=== PATIENT | male | born 1980 | race Caucasian/White ===

== ENCOUNTER → 2017-02-28 | Outpatient (REF) | LOC: WSOH 10:26 | DX: Z02.1 Encounter for pre-employment examination (principal) ==

== ENCOUNTER → 2017-02-28 | Outpatient (REF) | LOC: WSOH 10:28 | DX: Z00.00 Encounter for general adult medical examination without abnormal findings (principal) ==

== ENCOUNTER → 2017-03-03 | Outpatient (REF) | LOC: WSOH 09:26 | DX: Z00.00 Encounter for general adult medical examination without abnormal findings (principal) ==

== ENCOUNTER → 2017-03-09 | Outpatient (REF) | LOC: WSOH 03-07 15:00 | DX: Z00.00 Encounter for general adult medical examination without abnormal findings (principal) ==

== ENCOUNTER → 2017-03-09 | Outpatient (REF) | LOC: WSOH 09:45 | DX: Z02.89 Encounter for other administrative examinations (principal) ==

== ENCOUNTER 2021-04-21 10:06 | Emergency (ER) | payer OTHER ==
[~2021-04-21] VITALS: Ht 190.5 cm; Wt 118.2 kg
[2021-04-21 10:42] VITALS: TEMP 97.8
[2021-04-21 11:19] LABS: BASO % 0.4 % (0.0-2.0); EOS # 0.1 (0.0-0.7); EOS % 0.9 % (0-4.0); GRAN # 6.4 (1.4-6.5); GRAN % 75.3 % (42.2-75.2); HEMATOCRIT 39.6 % (42.0-52.0); HEMOGLOBIN 13.9 g/dl (13.5-18.0); LYMPH # 1.3 (1.2-3.4); LYMPH % 15.7 % (20.0-51.0); MEAN CELL VOLUME 89 fl (80.0-100.0); MEAN CORPUSCULAR HEMOGLOBIN 31 pg (27.0-31.0); MEAN CORPUSCULAR HGB CONC 35 g/dl (33.0-37.0); MEAN PLATELET VOLUME 8.7 fl (7.4-10.4); MONO # 0.6 (0.1-0.6); MONO % 6.5 % (1.7-9.3); PLATELET COUNT 234 K/mm3 (130-400); RED BLOOD COUNT 4.43 M/mm3 (4.20-5.60); REDCELL DISTRIBUTION WIDTH-CV 14.4 % (11.5-14.5)
[2021-04-21 11:33] LABS: ALBUMIN 4.3 gm/dL (3.5-5.0); BILIRUBIN,TOTAL 0.6 mg/dL (0.0-1.0); C-REACTIVE PROTEIN 1.9 mg/dL (0.0-0.9); CALCIUM 9.5 mg/dL (8.4-10.2); CREATININE, serum 1.37 (0.66-1.25); POTASSIUM 3.6 mmol/L (3.4-5.0); TOTAL PROTEIN 7.8 gm/dL (6.4-8.2)
[2021-04-21 11:42] LABS: TROPONIN-I 0.03 ng/mL (0.000-0.035)
[2021-04-21] MEDS ORDERED: HCTZ 25MG TAB25 MG PO (15:22)
[2021-04-21 15:30] VITALS: BP 167/101; PULSE 76
== END 2021-04-21 15:30 | disposition home or self-care (01) ==
LOC: COL.ER 10:06
PROVIDERS: Nurse Practitioner Primary Care
DX: R22.43 Localized swelling, mass and lump, lower limb, bilateral (principal); I10 Essential (primary) hypertension; R79.89 Other specified abnormal findings of blood chemistry

== ENCOUNTER 2021-05-05 13:48 | Emergency (ER) | payer OTHER ==
[~2021-05-05] VITALS: Ht 190.5 cm; Wt 125.0 kg
[~2021-05-05 13:48] MED LIST: HCTZ 25MG TAB25 MG PO
[2021-05-05 14:14] VITALS: TEMP 98.7
[2021-05-05 18:19] LABS: BASO % 0.3 % (0.0-2.0); EOS # 0.1 (0.0-0.7); EOS % 0.6 % (0-4.0); GRAN # 8.6 (1.4-6.5); GRAN % 79.5 % (42.2-75.2); HEMOGLOBIN 13.2 g/dl (13.5-18.0); LYMPH % 8.8 % (20.0-51.0); MEAN CELL VOLUME 91 fl (80.0-100.0); MEAN CORPUSCULAR HEMOGLOBIN 32 pg (27.0-31.0); MEAN CORPUSCULAR HGB CONC 35 g/dl (33.0-37.0); MEAN PLATELET VOLUME 8.7 fl (7.4-10.4); MONO # 1.1 (0.1-0.6); MONO % 10.2 % (1.7-9.3); PLATELET COUNT 269 K/mm3 (130-400); RED BLOOD COUNT 4.18 M/mm3 (4.20-5.60); REDCELL DISTRIBUTION WIDTH-CV 13.9 % (11.5-14.5)
[2021-05-05 18:28] LABS: ALBUMIN 4.3 gm/dL (3.5-5.0); BILIRUBIN,TOTAL 0.8 mg/dL (0.0-1.0); CALCIUM 9.4 mg/dL (8.4-10.2); CREATININE, serum 1.44 (0.66-1.25); POTASSIUM 3.8 mmol/L (3.4-5.0); TOTAL PROTEIN 8.2 gm/dL (6.4-8.2)
[2021-05-05 18:43] LABS: C-REACTIVE PROTEIN 13.7 mg/dL (0.0-0.9)
[2021-05-05 18:52] LABS: COLLECTION METHOD CLEAN CATCH
[2021-05-05 19:00] LABS: MUCOUS Present /lpf; PH 6 (5-8); SQUAMOUS EPITHELIAL None Seen /hpf; URINE APPEARANCE Clear; URINE BACTERIA None Seen /hpf; URINE BILIRUBIN Negative (NEGATIVE); URINE BLOOD 1+ (NEGATIVE); URINE COLOR Yellow; URINE GLUCOSE Negative (NEGATIVE); URINE KETONE 1+ (NEGATIVE); URINE LEUKOCYTE ESTERASE Negative (NEGATIVE); URINE NITRATE Negative (NEGATIVE); URINE PROTEIN(semi-quant) 2+ (NEGATIVE)
[2021-05-05] MEDS ORDERED: PERCOCET 325 MG1 TA2 PO (20:02)
[2021-05-05 20:33] VITALS: BP 145/101; PULSE 89
== END 2021-05-05 20:35 | disposition home or self-care (01) ==
LOC: COL.ER 13:48
PROVIDERS: Nurse Practitioner Primary Care
DX: R59.0 Localized enlarged lymph nodes (principal); N49.2 Inflammatory disorders of scrotum; I10 Essential (primary) hypertension; F17.200 Nicotine dependence, unspecified, uncomplicated
CPT/HCPCS: J1170

== ENCOUNTER 2021-05-15 12:52 | Day surgery (SDC) | payer OTHER ==
[2021-05-15] VITALS (15 sets, daily range): BP systolic 119–137; BP diastolic 74–90; PULSE 78–100; TEMP 97.8–98.4
[~2021-05-15] VITALS: Ht 190.5 cm; Wt 117.2 kg
[~2021-05-15 12:52] MED LIST changes: +PERCOCET 325 MG1 TA2 PO
[2021-05-15] MEDS ORDERED: ADALAT CC30 MG PO (14:10)
[2021-05-15] MEDS ORDERED: TOPROL XL 50MG50 MG PO (14:11)
[2021-05-15] MEDS ORDERED: ALDACTONE 25MG25 M1 PO (14:11)
[2021-05-15] MEDS ORDERED: ZESTRIL 20MG TA20 MG PO (14:12)
[2021-05-15] MEDS ORDERED: DAZIDOX20 MG PO (14:12)
--- NOTE | 2021-05-15 18:15 | NUR ---
Pt. arrived to unit after surgery. Pt. alert and requested to go to the bathroom. Pt. voided and while he was voiding he reported what looked like blood clots came out while he was urinating. He was screaming because it was painful. This RN offered the patient reassurance and helped the patient back to bed. The pt. reported it was very painful at the end of the urination when the clots came out. Pt. resting in bed now and reports 9/10 pain. Oxycodone PRN administered.
--- NOTE | 2021-05-15 18:25 | NUR ---
Head to toe assessment complete. Medications reviewed with pt. and all meds accurate. Pharmacy and allergies reviewed, no known allergies and [facility] pharmacy up to date.
[2021-05-15 21:43] LABS: LACTATE DEHYDROGENASE 2073 U/L (313-618)
[2021-05-15 22:10] LABS: HCG,QUANTITATIVE < 2 mIU/mL
--- NOTE | 2021-05-16 03:10 | NUR ---
PATIENT A+OX4, VSS. PATIENT REQUESTED TO SPEAK TO SURGENT TO HAVE MORE CLARIFICATION REGARDING PLAN SURGICAL PROCEDURE FOR TODAY. DR REYNA MIDDLETON CALLED AND WAS ABLE TO TALKED TO PATIENT AND EXPLAINED THE PLAN PROCEDURE TO PATIENT. HE VERBALIZE UNDERSTANDING. PATIENT INDEPENDENTT, VOID BLOODY COLOR URINE, PATIENT REPORT PAIN WITH URINATION. PAIN MANAGE WITH OXYCODONE 5 MG Q 4HRS WITH GOOD EFFECT. WILL CONTINUE TO MONITOR.
[2021-05-16 04:09] VITALS: BP 129/78; PULSE 65; TEMP 98
[2021-05-16 04:11] VITALS: BP 129/78; PULSE 65; TEMP 98
[2021-05-16 08:00] VITALS: BP 130/78; PULSE 63; TEMP 97.6
--- NOTE | 2021-05-16 09:30 | NUR ---
Patient resting in bed. He has lots of concerns about neph tube placement. Spoke with . I also called and spoke to radiologist, he is unaware of neph tube placement orders. made aware. Patient main complaints of pain are with urination. Azo & levsin ordered
[2021-05-16] MEDS ORDERED: LOVENOX 4040 MG/0.4 SQ (11:26)
[2021-05-16] MEDS ORDERED: NORCO 325 MG-51 TAB PO (11:26)
[2021-05-16] MEDS ORDERED: PYRIDIUM 100MG100 MG PO (11:26)
--- NOTE | 2021-05-16 13:03 | NUR ---
rounded. Discharge orders obtained. Patient aware of plan of care. Patient was able to give himself lovenox injection per orders. [facility], vijaya reviewed patient agreeable to pay for script. We discussed home med list & last dose taken, he is understanding. Incisions cares reviewed as well as signs & symptoms to call physican. activity restrictions & diet reviewed. Patient has follow up appt scheduled for to [place]. Patient is wanting a second opinion. He will not be getting neph tube placed today, it will be done on outpatient basis per patient preference. Patient wheeled out with all belongings. His son taking him home. new jock strap provided for patient as well as gauze for home dressing change to be completed after a shower this evening. 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 thankful for cares given.
--- NOTE | 2021-05-16 13:16 | NUR ---
Horticulture Instructor offered prayer and support with patient.
== END 2021-05-16 13:19 | disposition home or self-care (01) ==
LOC: SDCO 12:52 → SURG 17:55 → SDCO 05-16 13:19
PROVIDERS: Urology
DX: C62.11 Malignant neoplasm of descended right testis (principal); I10 Essential (primary) hypertension; N13.30 Unspecified hydronephrosis; L03.112 Cellulitis of left axilla; F17.210 Nicotine dependence, cigarettes, uncomplicated; Z20.822 Contact with and (suspected) exposure to COVID-19; Z79.2 Long term (current) use of antibiotics; Z79.899 Other long term (current) drug therapy
CPT/HCPCS: OP; C1769; J0690; J1100; J1170; J1650; J2405; J2704; J3010; J7120; Q9967

== ENCOUNTER → 2022-07-06 | Outpatient (CLI) | payer OTHER ==
[~2022-07-06] MED LIST changes: +ADALAT CC30 MG PO; +ALDACTONE 25MG25 M1 PO; +DAZIDOX20 MG PO; +LOVENOX 4040 MG/0.4 SQ; +NORCO 325 MG-51 TAB PO; +PYRIDIUM 100MG100 MG PO; +TOPROL XL 50MG50 MG PO; +ZESTRIL 20MG TA20 MG PO
== END ==
LOC: COL.RAD 08:05
DX: C62.91 Malignant neoplasm of right testis, unspecified whether descended or undescended (principal); R91.1 Solitary pulmonary nodule; N13.30 Unspecified hydronephrosis; K57.30 Diverticulosis of large intestine without perforation or abscess without bleeding; R59.0 Localized enlarged lymph nodes
CPT/HCPCS: Q9967

== ENCOUNTER 2023-11-25 07:03 | Emergency (ER) | payer OTHER ==
[~2023-11-25] VITALS: Ht 188 cm; Wt 127.3 kg
[2023-11-25] MEDS ORDERED: Rocuronium 50 MG/5 ML Multi-Dose VIAL IV SCH (07:15)
[2023-11-25] MEDS ORDERED: Etomidate 20 MG/10 ML VIAL IV SCH (07:15)
[2023-11-25] MEDS ORDERED: Furosemide 40 MG/4 ML VIAL IV SCH (07:24)
[2023-11-25 07:45] LABS: ALBUMIN 3.4 gm/dL (3.5-5.0); BILIRUBIN,TOTAL 0.9 mg/dL (0.2-1.2); CALCIUM 9.6 mg/dL (8.4-10.2); CREATININE, serum 1.7 mg/dL (0.72-1.25); POTASSIUM 3.8 mmol/L (3.5-4.5); TOTAL PROTEIN 8.3 gm/dL (6.2-8.1)
[2023-11-25 07:46] LABS: HEMOGLOBIN 12.2 g/dl (13.5-18.0); MEAN CELL VOLUME 93 fl (80.0-100.0); MEAN CORPUSCULAR HEMOGLOBIN 26 pg (27-31); MEAN CORPUSCULAR HGB CONC 28 g/dl (33.0-37.0); MEAN PLATELET VOLUME 9.3 fl (7.4-10.4); PLATELET COUNT 226 K/mm3 (130-400); RED BLOOD COUNT 4.63 M/mm3 (4.20-5.60)
[2023-11-25 07:59] LABS: MAGNESIUM 2.3 mg/dL (1.6-2.6); PHOSPHOROUS 4.1 mg/dL (2.3-4.7)
[2023-11-25 08:08] LABS: TROPONIN-I 0.037 ng/mL (0.00-0.033)
[2023-11-25 08:28] LABS: BAND 2 % (0-10); BASOPHIL 2 % (0-2); EOSINOPHIL 1 % (0-4); LYMPHOCYTE 23 % (20.0-51.0); NEUTROPHILS 66 % (42.0-75.2); PLATELET ESTIMATE NORMAL (NORMAL)
[2023-11-25 08:30] LABS: ANISOCYTOSIS 1+
[2023-11-25 08:31] LABS: HYPOCHROMIA 2+
[2023-11-25] MEDS ORDERED: Rocuronium 50 MG/5 ML Multi-Dose VIAL IV ONE (09:15)
[2023-11-25] MEDS ORDERED: Cefepime 1 G in Water For Injection,Sterile 10 ML IV ONE (09:15)
[2023-11-25 10:41] VITALS: BP 97/65; PULSE 113; TEMP 98.9
--- NOTE | 2023-11-25 10:57 | NUR ---
Patient is intubated in the ED. rail signal worker contacted [facility] [employer] and was able to secure a phone number for patient's daughter, Christianne Ang #[phone]. House Superviser, Francisco, made contact with Christianne regarding patient's health condition and transfer.
[2023-11-25] MEDS ORDERED: Nitroglycerin/D5W 250 ML IV ONE (11:00)
[2023-11-25] MEDS ORDERED: fentaNYL 100 ML IV ONE (11:00)
== END 2023-11-25 10:41 | disposition short-term general hospital (02) ==
LOC: COL.ER 07:03
PROVIDERS: Emergency Medicine
DX: J81.0 Acute pulmonary edema (principal); I50.9 Heart failure, unspecified; E87.20 Acidosis, unspecified; R00.0 Tachycardia, unspecified; D72.829 Elevated white blood cell count, unspecified
CPT/HCPCS: A4314; C1751; C1892; J0692; J1940; J2305; J2704; J3010; J3370; J7050

== ENCOUNTER 2024-03-29 17:02 | Inpatient (IN) | payer OTHER ==
[~2024-03-29] VITALS: Ht 190.5 cm; Wt 129.1 kg
[2024-03-29] MEDS ORDERED: Furosemide 40 MG/4 ML VIAL IV ONE (17:30)
[2024-03-29 17:46] LABS: ARTERIAL BLD GAS O2 SATURATION 92.7 % (92-100); ARTERIAL BLD GAS TCO2 CT 16.7; ARTERIAL BLOOD GAS BASE EXCESS -6.5 (-2-2); ARTERIAL BLOOD GAS HCO3 15.9 meq/L (22-26); ARTERIAL BLOOD GAS PCO2 24.2 mmHg (35-45); ARTERIAL BLOOD GAS PO2 74.3 mmHg (80-100); ARTERIAL BLOOD GAS pH 7.44 (7.35-7.45)
[2024-03-29] MEDS ORDERED: Furosemide 100 MG in NS 100 ML IV SCH (18:00)
[2024-03-29 18:02] LABS: HEMATOCRIT 42.1 % (42.0-52.0); MEAN CELL VOLUME 79 fl (80.0-100.0); MEAN CORPUSCULAR HEMOGLOBIN 24 pg (27-31); MEAN CORPUSCULAR HGB CONC 31 g/dl (33.0-37.0); MEAN PLATELET VOLUME 9.5 fl (7.4-10.4); PLATELET COUNT 405 K/mm3 (130-400); RED BLOOD COUNT 5.33 M/mm3 (4.20-5.60); REDCELL DISTRIBUTION WIDTH-CV 21.2 % (11.5-14.5)
[2024-03-29 18:40] LABS: EOSINOPHIL 1 % (0-4); LYMPHOCYTE 22 % (20.0-51.0); NEUTROPHILS 67 % (42.0-75.2)
[2024-03-29 18:42] LABS: ANISOCYTOSIS 2+; HYPOCHROMIA 3+; MICROCYTOSIS 1+; PLATELET ESTIMATE INCREASED (NORMAL); STOMATOCYTE 1+
[2024-03-29] MEDS ORDERED: KLOR-CON20 MEQ PO (19:51)
[2024-03-29] MEDS ORDERED: PACERONE200 MG PO (19:52)
[2024-03-29] MEDS ORDERED: ZEBETA 5MG5 MG PO (19:54)
[2024-03-29] MEDS ORDERED: LASIX 40MG TABL40 MG PO (19:54)
[2024-03-29] MEDS ORDERED: ASPIRIN 81M81 MG/TA2 PO (19:55)
[2024-03-29] MEDS ORDERED: LIPITOR 40MG TA40 MG PO (19:56)
[2024-03-29] MEDS ORDERED: JARDIANCE10 PO (19:57)
[2024-03-29] MEDS ORDERED: ENTRESTO 24 MG1 EACH PO (19:57)
[2024-03-29] MEDS ORDERED: ADVIL200 MG PO (19:59)
[2024-03-29] MEDS ORDERED: TOPROL XL 50MG50 MG PO (20:00)
[2024-03-29 20:29] VITALS: BP 115/84; PULSE 95; TEMP 97.7
--- NOTE | 2024-03-29 20:29 | NUR ---
Received report from ED nurseNasrin.
--- NOTE | 2024-03-29 20:29 | NUR ---
Patient arrives to ICU room 2 via ED stretcher. Patient is alert and oriented upon arrival to unit. Able to scoot over to ICU bed independently. Initial vitals within normal limits. Patient reports extreme discomfort d/t abdominal distention and tightness. Hospitalist, licha Minor. Patient arrives to unit receiving lasix drip per orders in [facility]AR.
[2024-03-29] MEDS ORDERED: Atorvastatin 40 MG TAB PO SCH (21:00)
[2024-03-29] MEDS ORDERED: DOPamine/Dextrose 5%-Water 250 ML IV SCH (21:00)
[2024-03-29] MEDS ORDERED: Ondansetron 4 MG/2 ML VIAL IV PRN (21:00)
[2024-03-29] MEDS ORDERED: FUROSEMIDE IV SCH (21:00)
[2024-03-29] MEDS ORDERED: D5W IV SCH (21:00)
[2024-03-29] MEDS ORDERED: Lactulose Oral Soln 10 GM/15 ML CUP PO ONE (21:00)
[2024-03-29] MEDS ORDERED: Sennosides/Docusate 8.6-50 MG TAB PO SCH (21:00)
[2024-03-29] MEDS ORDERED: Acetaminophen 325 MG TAB PO PRN (21:00)
[2024-03-29] MEDS ORDERED: Furosemide 100 MG in NS 100 ML (AT SET RATE) IV SCH (21:45)
[2024-03-29] MEDS ORDERED: Melatonin 3 MG TAB PO PRN (21:45)
--- NOTE | 2024-03-29 21:45 | NUR ---
Patient states his DPOA is shared between his aunt and uncle, Nicole and Adriano Marleyi, phone number [phone].
--- NOTE | 2024-03-29 22:00 | NUR ---
Patient's belongings include street clothes, a backpack, a cell phone and nurse tech, a set of keys, and a wallet. Patient denies use of hospital safe for belongings when offered. Denies having dentures, hearing aids, or glasses. Denies using ambulatory devices at home.
[2024-03-30] VITALS (9 sets, daily range): BP systolic 90–146; BP diastolic 54–83; PULSE 67–163; TEMP 97.3–97.8
[2024-03-30] MEDS ORDERED: Heparin 5,000 UNITS/ML 1 ML VIAL SQ SCH
[2024-03-30] MEDS ORDERED: Morphine 4 MG/ML VIAL IV PRN (01:00)
[2024-03-30 05:50] LABS: BASO # 0.1 K/mm3 (0.0-0.2); BASO % 0.8 % (0.0-2.0); EOS # 0.1 K/mm3 (0.0-0.7); EOS % 0.9 % (0.0-4.0); GRAN % 69.1 % (42.2-75.2); HEMATOCRIT 39.2 % (42.0-52.0); HEMOGLOBIN 12.1 g/dl (13.5-18.0); LYMPH # 1.4 K/mm3 (1.2-3.4); LYMPH % 16.2 % (20.0-51.0); MEAN CELL VOLUME 79 fl (80.0-100.0); MEAN CORPUSCULAR HEMOGLOBIN 24 pg (27-31); MEAN CORPUSCULAR HGB CONC 31 g/dl (33.0-37.0); MEAN PLATELET VOLUME 8.8 fl (7.4-10.4); MONO # 1.1 K/mm3 (0.1-0.6); MONO % 12.7 % (1.7-9.3); RED BLOOD COUNT 4.97 M/mm3 (4.20-5.60); REDCELL DISTRIBUTION WIDTH-CV 20.9 % (11.5-14.5)
[2024-03-30 06:01] LABS: PLATELET COUNT 305 K/mm3 (130-400)
--- NOTE | 2024-03-30 07:00 | NUR ---
Report received from CAYLA Gibson; patient currently resting in bed with lasix running through his peripheral line; patient has been intermittently on oxygen via NC but is on room air this morning. Patient has no other lines or tubes in place at this time. Patient's vital signs are within normal limits this morning and patient was able to use the bedside commode with no issues overnight.
[2024-03-30] MEDS ORDERED: Amiodarone 200 MG TAB PO SCH (09:00)
[2024-03-30] MEDS ORDERED: DOBUTamine/D5W 250 ML IV SCH (09:30)
[2024-03-30] MEDS ORDERED: Bisoprolol 5 MG TAB PO SCH (10:15)
--- NOTE | 2024-03-30 10:51 | NUR ---
clothing trades workers met with patient to discuss discharge planning. Patient stated he lives in [place] alone. Patient states his son, Leonardo, is his point of contact but his aunt, Nicole, and uncle, Adriano, are his DPOA-HC. PCP is at [facility] in [place]. Pharmacy is [facility] [address]. Insurance is [employer]. DPOA-HC Nicole and Adriano. No current DME. Patient reports to normally be independent with ADLS. Patient stated he has been able to transport himself but lately has been having his youngest son assist him. SW discussed home health, patient stated he was supposed to get it last time he discharged from a hospital; however[facility] program before he qualifies for home health. Patient would like to return home at time of discharge. MADIE contacted Nicole, P# [phone], to receive a copy of the patient's DPOA-HC. Nicole explained she and Adriano did not receive a copy of it from the patient but they are in agreement to be the DPOA-HC. MADIE obtained address for frances and Adriano P# [phone]. MADIE met with patient again to explained Nicole did not have a copy of the DPOA-HC and asked if he completed it somewhere that she can reach out to and get a copy of it. Patient stated he wished the social and human services assistant spoke with him before calling Nicole because he had not told them that he was in the hospital yet. SW explained they need a copy of the DPOA-HC otherwise if something were to happen to him in the hospital decisions would go to his next of kin which would be his son. Patient stated he did not want that because his son is 20 years old and he does not want him to have to make those hard decisions. Patient expressed he had a copy of the DPOA-HC at home but stated he would be okay with completing a new one here in the hospital. MADIE assisted patient with completing the form. Patient appointed Adriano, uncle, as primary agent then Nicole, gonzálezt, as secondary. Both live at [address] [place] [address] in [place], [place]. MADIE and RN witnessed patient's signature. MADIE made copies, placed copy in chart and provided original and several copies to patient. Patient is okay with social and human services assistant emailing a copy to Darlene. RAMACHANDRAN emailed copy to [email or web address]. MADIE notified patient's nurse, Valeria, of patient's decision for DPOA-HC. DIscharge plan: Home
[2024-03-30] MEDS ORDERED: K-DUR20 MEQ PO (11:57)
--- NOTE | 2024-03-30 16:15 | NUR ---
Reported off to CAYLA Mascorro; patient taken upstairs to room 351 by this nurse and CAYLA Jimenez. Patient taken up by wheelchair with all of his belongings. Patient had lasix and dobutamine running at fixed rates. Patient's vital signs within normal limits and patient in stable condition.
--- NOTE | 2024-03-30 16:22 | NUR ---
Patient to room 351 from the ICU by wheelchair. Patient A&Ox4. VSS. IV CDI, fluids infusing. Reports pain in abdomen, requesting pain medication, but cannot have a dose yet. Nurse oriented the patient to location, room and call light. Call light within reach. Bed alarm on
[2024-03-31] VITALS (13 sets, daily range): BP systolic 91–122; BP diastolic 59–83; PULSE 66–141; TEMP 97.5–98
--- NOTE | 2024-03-31 01:54 | NUR ---
DURING BEDSIDE SHIFT REPORT THE PATIENT GOT UPSET BECAUSE HIS IV MORPHINE WAS DISCONTINUED AND NORCO 5/[address] ESQUIVEL CHANGED THE ORDER AND THE PATIENT WAS UPDATED REGARDING THIS. ALSO, THE PATIENT WAS UPSET BECAUSE HE FELT LIKE HE SHOULD BE ABLE TO GET OUT OF BED ON HIS OWN WITHOUT HELP. THE PATIENT IS ON A LASIX AND DOBUTAMINE DRIP AND SAFETY WAS STAFF'S CONCERN. THE PATIENT ASKED TO SPEAK WITH THE TONGUE CARRIER. IT WAS DECIDED THAT THE PATIENT COULD GET UP AND HE AMBULATED WITH A STEADY GAIT AND NO DIZZINESS NOTED. THE PATIENT IS ALERT AND ORIENTED.
[2024-03-31 06:37] LABS: BASO % 0.6 % (0.0-2.0); EOS # 0.1 K/mm3 (0.0-0.7); EOS % 0.9 % (0.0-4.0); GRAN # 4.9 K/mm3 (1.4-6.5); GRAN % 70.6 % (42.2-75.2); LYMPH % 14.3 % (20.0-51.0); MEAN CELL VOLUME 79 fl (80.0-100.0); MEAN CORPUSCULAR HEMOGLOBIN 25 pg (27-31); MEAN CORPUSCULAR HGB CONC 31 g/dl (33.0-37.0); MEAN PLATELET VOLUME 9.2 fl (7.4-10.4); MONO # 0.9 K/mm3 (0.1-0.6); MONO % 13.2 % (1.7-9.3); PLATELET COUNT 232 K/mm3 (130-400); RED BLOOD COUNT 4.45 M/mm3 (4.20-5.60); REDCELL DISTRIBUTION WIDTH-CV 20.5 % (11.5-14.5)
[2024-03-31 07:03] LABS: CALCIUM 8.7 mg/dL (8.4-10.2); CREATININE, serum 2.38 mg/dL (0.72-1.25); POTASSIUM 3.2 mEq/L (3.5-4.5)
--- NOTE | 2024-03-31 08:58 | NUR ---
Patient resting in bed, alert and oriented x4, VSS, states he has pain in his abdomen rating 6/10, asked for his PRN, norco, provided. States he had a BM yesterday. Telemetry in place, SR with BBB. Getting lasix 11 mls/hr and dobutamine 5 mcg/kg/min. Assessment completed, meds given. No further needs at this time. Call light within reach.
[2024-03-31] MEDS ORDERED: DOBUTamine/D5W 250 ML IV SCH (11:30)
[2024-03-31] MEDS ORDERED: Polyethylene Glycol 3350 17 GM PDS PO SCH (13:30)
[2024-03-31] MEDS ORDERED: Potassium Bicarbonate/Citrate 20 MEQ Effervescent TAB PO SCH (13:45)
[2024-03-31] MEDS ORDERED: *Potassium Replacement Protocol MC SCH (13:45)
[2024-03-31] MEDS ORDERED: Acetaminophen 325 MG TAB PO PRN (14:15)
--- NOTE | 2024-03-31 15:47 | NUR ---
Pt was assitsted to the restromm. He reports that when moving to the edge of the bed he felt lightheadedness, so stay for a little bit and then go to restroom. Pt continues getting lasix gtt and dobutamine per orders.
--- NOTE | 2024-03-31 17:46 | NUR ---
Pt repoted to COAT OPERATOR feeling dizzy. Per patient he received his food and just moving the head of bed up to eat, made him feel lightheaded. Pt with difficulties keeping himself to drink less than allowed. Educated about it. Pt continues getting gtts per orders. Continue monitoring.
[2024-03-31] MEDS ORDERED: Lactulose Oral Soln 10 GM/15 ML CUP PO ONE (18:15)
[2024-03-31] MEDS ORDERED: Meclizine 25 MG TAB PO PRN (18:15)
[2024-04-01] VITALS (8 sets, daily range): BP systolic 90–109; BP diastolic 60–75; PULSE 81–120; TEMP 97.5–98.9
--- NOTE | 2024-04-01 05:20 | NUR ---
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 PT PLEASANT BUT NOT VERY HAPPY. PT COMPLAINED ABOUT HIS FLUID RESTRICTION, NO LONGER BEING ABLE TO GET NARCOTICS FOR PAIN, ETC. I EXPLAINED TO PT WHY THE FLUID RESTICTION AND THAT THE PROVIDER WAS THE ONLY ONE WHO COULD ADD THE NARCOTICS TO HIS MAR. PT WAS STILL UPSET. PT DENIED CHEST PAIN, N,V,D OR DIZZINESS. FALL PRECAUTIONS IN PLACE. CALL LIGHT WITHIN REACH.
[2024-04-01 06:26] LABS: BASO % 0.6 % (0.0-2.0); EOS # 0.1 K/mm3 (0.0-0.7); EOS % 0.9 % (0.0-4.0); GRAN # 4.5 K/mm3 (1.4-6.5); GRAN % 68.1 % (42.2-75.2); HEMOGLOBIN 11.2 g/dl (13.5-18.0); LYMPH # 1.1 K/mm3 (1.2-3.4); LYMPH % 15.8 % (20.0-51.0); MEAN CELL VOLUME 78 fl (80.0-100.0); MEAN CORPUSCULAR HEMOGLOBIN 24 pg (27-31); MEAN CORPUSCULAR HGB CONC 31 g/dl (33.0-37.0); MEAN PLATELET VOLUME 9.3 fl (7.4-10.4); MONO % 14.3 % (1.7-9.3); PLATELET COUNT 234 K/mm3 (130-400); RED BLOOD COUNT 4.59 M/mm3 (4.20-5.60); REDCELL DISTRIBUTION WIDTH-CV 20.9 % (11.5-14.5)
[2024-04-01 06:28] LABS: HEMATOCRIT 35.7 % (42.0-52.0)
[2024-04-01 06:37] LABS: CALCIUM 8.8 mg/dL (8.4-10.2); CREATININE, serum 2.47 mg/dL (0.72-1.25); POTASSIUM 3.6 mEq/L (3.5-4.5)
[2024-04-01] MEDS ORDERED: Torsemide 20 MG TAB PO SCH (08:00)
--- NOTE | 2024-04-01 08:30 | NUR ---
patient alert and oriented x4. patient reports pain of 7/10. refuses tylenol fpr pain. patient on room air. telemetry on. Patient reports not sleeping well. patient butamine drip per mar. patient denies any other concern at this time. call light within reach. bed at lowest position.
--- NOTE | 2024-04-01 11:00 | NUR ---
PATIENT DEBUTAMINE DRIP STOPPED PER CARDIOLOGY (RENETTA) ORDER.
--- NOTE | 2024-04-01 13:15 | NUR ---
patient verbalizes wanting to go home. this nurse explained that cardiology advised to stay and hospitalist aswell. patient was persistant on going home. patient was educated that it would mean patient is leaving against medical advise. patient still wanted to leave AMA.
--- NOTE | 2024-04-01 13:25 | NUR ---
PATIENT GIVEN PROS TO STAYING AND TREATMENT HE WOULD RECIEVE BY STAYING, PATIENT ALSO GIVEN CONS TO LEAVING INCLUDING ADVERSE AFFECTS OF LEAVING AMA WITHOUT THE LISTED CARES (PLEASE SEE AMA FORM FOR DETAILS.) PATIENT STILL WANTED TO GO AGAINST PRESIDENT ERGONOMIC CONSULTING. 2 PERIPHERAL IVS REMOVED, TELEMETRY REMOVED. PATIENT STATED HE IS CALLING A RIDE FOR DISCHARGE.
== END 2024-04-01 14:00 | disposition left against medical advice (07) | DRG 293 ==
LOC: COL.ER 17:02 → ICU 20:03 → MEDICAL 03-30 16:23
PROVIDERS: Nurse Practitioner; Physician Assistant; ADMIT Internal Medicine
DX: I13.0 Hypertensive heart and chronic kidney disease with heart failure and stage 1 through stage 4 chronic kidney disease, or unspecified chronic kidney disease (principal); I42.9 Cardiomyopathy, unspecified; I50.9 Heart failure, unspecified; Z95.810 Presence of automatic (implantable) cardiac defibrillator; E78.5 Hyperlipidemia, unspecified; N18.9 Chronic kidney disease, unspecified; K59.00 Constipation, unspecified
CPT/HCPCS: J1250; J1644; J1940; J2270

== ENCOUNTER 2024-04-06 12:49 | Outpatient (CLI) | payer OTHER ==
[~2024-04-06] VITALS: Ht 190.5 cm; Wt 130.0 kg
[~2024-04-06 12:49] MED LIST changes: +ADVIL200 MG PO; +ASPIRIN 81M81 MG/TA2 PO; +ENTRESTO 24 MG1 EACH PO; +JARDIANCE10 PO; +K-DUR20 MEQ PO; +KLOR-CON20 MEQ PO; +LASIX 40MG TABL40 MG PO; +LIPITOR 40MG TA40 MG PO; +PACERONE200 MG PO; +ZEBETA 5MG5 MG PO
[2024-04-06] MEDS ORDERED: DEMADEX 20MG20 M1 PO (13:13)
[2024-04-06] MEDS ORDERED: DULCOLAX TAB5 MG PO (13:18)
[2024-04-06 13:26] VITALS: BP 121/90; PULSE 70; TEMP 97.6
--- NOTE | 2024-04-06 14:00 | NUR ---
Patient arrived to Express unit at approximately 1300. Resipirations appear slightly labored, patient reports dyspnea that has gotten progressively worse and his diuretics have stopped working. Patient skin is warm/pink/diaphoretic. Some edema noted in lower extremities. Patient has defibrillator to right upper chest, Dr. Enamorado aware, plan to proceed with right side tunneled dialysis catheter. Consent obtained.
[2024-04-06] MEDS ORDERED: ceFAZolin 2 G in Water For Injection,Sterile 20 ML IV SCH (14:45)
--- NOTE | 2024-04-06 15:06 | NUR ---
See merge for all medication, assessment,intervention, andvital sign times.
[2024-04-06 15:30] VITALS: BP 108/85; PULSE 75
--- NOTE | 2024-04-06 15:30 | NUR ---
Bedside report completed with Karol Arreola, first set of vitals reviewed, insertion site reviewed, call light within reach, patient alert & oriented. Karol Arreola denies questions/concerns at this time.
--- NOTE | 2024-04-06 15:30 | NUR ---
pt to eu 11 via bed from dentures lab technician. Pt is awake and alert, no c/o pain, sits up in bed, states is hungry and thirsty, dressing to left upper chest is clean and dry. pt takes juice and sandwhich, call light in reach
[2024-04-06] MEDS ORDERED: Heparin 1,000 UNITS/ML 10 ML Multi-Dose VIAL ICA SCH (15:42)
[2024-04-06] MEDS ORDERED: Midazolam 2 MG/2 ML VIAL IV SCH (15:44)
[2024-04-06 15:45] VITALS: BP 116/84; PULSE 75
[2024-04-06] MEDS ORDERED: fentaNYL 50 MCG/ML 2 ML VIAL IV SCH (15:45)
--- NOTE | 2024-04-06 15:45 | NUR ---
pt uses phone to arrange ride to dialysis when discharged, no changes or c/o
[2024-04-06] MEDS ORDERED: Lidocaine 2% w EPI (1:100,000) 20 ML Multi-Dose VIAL IJ SCH (15:46)
[2024-04-06 16:00] VITALS: BP 127/95; PULSE 77
[2024-04-06 16:15] VITALS: BP 132/91; PULSE 77
--- NOTE | 2024-04-06 16:15 | NUR ---
PT C/O "SORENESS" AT SITE, REQUESTS TYLENOL, DR TABOR NOTIFIED AND NEW ORDER RECEVIED AND TYLENOL GIVEN PO 1000MG. AT 1630 PT SAT ON SIDE OF BED, TOLERATES WELL, NO C/O DIZZINESS, CORN POPPER FOR DR LANDA CALLED EARLIER ABOUT DISCHARGE TIME, ALSO WHERE PT IS TO GO UPON DISCHARGE AND RELAYED TO PT.
[2024-04-06] MEDS ORDERED: Acetaminophen 500 MG TAB PO ONE (16:30)
--- NOTE | 2024-04-06 16:30 | NUR ---
PT WALKED IN ROOM, WITH STANDBY ASSIST, TOLERATED WELL, DRESSING TO CHEST REMAINS CLEAN AND DRY. REVIEWED DISCHARGE INST. WITH PT ON CARE OF SITE, TO LEAVE DRESSING ON, MAY SHOWER TOMORROW BUT MUST KEEP DRESSING CLEAN AND DRY. ALSO MODERATE SEDATION INST. GIVEN WITH VERBAL UNDERSTANDING, PT DRESSED, IV D'CD, DISCHARGED FOR DIALYSIS TO ER ENTRANCE WITH FRIEND WHO IS DRIVING HIM
== END 2024-04-06 16:35 | disposition home or self-care (01) ==
LOC: COL.CAR 12:49
DX: N17.9 Acute kidney failure, unspecified (principal); Z87.891 Personal history of nicotine dependence
CPT/HCPCS: J0690; J1644; J2250; J3010

== ENCOUNTER 2024-05-07 15:15 | Emergency (ER) | payer OTHER ==
[~2024-05-07] VITALS: Ht 182.9 cm; Wt 115.5 kg
[2024-05-07 15:15] VITALS: TEMP 97.7
[~2024-05-07 15:15] MED LIST changes: +DEMADEX 20MG20 M1 PO; +DULCOLAX TAB5 MG PO
[2024-05-07] MEDS ORDERED: LORazepam 2 MG/ML 1 ML VIAL IM ONE (15:18)
[2024-05-07] MEDS ORDERED: Furosemide 40 MG/4 ML VIAL IV ONE (15:23)
[2024-05-07] MEDS ORDERED: Metoprolol Tartrate 5 MG/5 ML VIAL IV ONE ×2 (15:25→16:15)
[2024-05-07] MEDS ORDERED: Morphine 4 MG/ML VIAL IV ONE (15:26)
[2024-05-07 15:49] LABS: BASO # 0.1 K/mm3 (0.0-0.2); BASO % 0.4 % (0.0-2.0); EOS % 0.1 % (0.0-4.0); GRAN # 14.3 K/mm3 (1.4-6.5); GRAN % 79.1 % (42.2-75.2); HEMATOCRIT 47.6 % (42.0-52.0); HEMOGLOBIN 14.2 g/dl (13.5-18.0); LYMPH # 2.4 K/mm3 (1.2-3.4); LYMPH % 13.5 % (20.0-51.0); MEAN CELL VOLUME 82 fl (80.0-100.0); MEAN CORPUSCULAR HEMOGLOBIN 25 pg (27-31); MEAN CORPUSCULAR HGB CONC 30 g/dl (33.0-37.0); MEAN PLATELET VOLUME 10.6 fl (7.4-10.4); MONO # 1.1 K/mm3 (0.1-0.6); MONO % 6.3 % (1.7-9.3); PLATELET COUNT 287 K/mm3 (130-400); RED BLOOD COUNT 5.78 M/mm3 (4.20-5.60)
[2024-05-07 15:51] LABS: INR 1.6 (0.8-3.0); PROTHROMBIN TIME 16.8 SECONDS (9.7-12.8)
[2024-05-07] MEDS ORDERED: LORazepam 2 MG/ML 1 ML VIAL IV ONE (15:54)
[2024-05-07 16:02] LABS: ALANINE AMINOTRANSFERASE 12 U/L (0-55); ALBUMIN 3.9 g/dL (3.5-5.0); ALKALINE PHOSPHATASE 184 U/L (40-150); ANION GAP 24 mmol/L (7-16); AST,SGOT 29 U/L (5-34); BILIRUBIN,TOTAL 2.8 mg/dL (0.2-1.2); BLOOD UREA NITROGEN 28 mg/dL (9-21); CHLORIDE 97 mEq/L (98-107); CREATININE, serum 2.26 mg/dL (0.72-1.25); GLUCOSE 165 mg/dL (70-99); POTASSIUM 4.6 mEq/L (3.5-4.5); SODIUM 136 mEq/L (136-145); TOTAL PROTEIN 8.6 g/dl (6.2-8.1)
[2024-05-07 16:04] LABS: ARTERIAL BLOOD GAS PO2 99.4 mmHg (80-100); ARTERIAL BLOOD GAS pH 7.34 (7.35-7.45)
[2024-05-07 16:05] LABS: ARTERIAL BLOOD GAS BASE EXCESS -7.6 (-2-2); ARTERIAL BLOOD GAS HCO3 16.7 meq/L (22-26)
[2024-05-07 16:10] LABS: TROPONIN-I < 0.010 ng/mL (0.00-0.033)
[2024-05-07 18:45] VITALS: BP 91/68; PULSE 111
== END 2024-05-07 18:45 | disposition short-term general hospital (02) ==
LOC: COL.ER 15:15
PROVIDERS: Family Medicine
DX: I13.2 Hypertensive heart and chronic kidney disease with heart failure and with stage 5 chronic kidney disease, or end stage renal disease (principal); N18.6 End stage renal disease; I50.9 Heart failure, unspecified; F17.210 Nicotine dependence, cigarettes, uncomplicated; Z99.2 Dependence on renal dialysis
CPT/HCPCS: A4314; J1940; J2060; J2270

== ENCOUNTER → 2024-06-05 | Outpatient (CLI) | payer OTHER ==
[~2024-06-05] VITALS: Ht 190.5 cm; Wt 114.5 kg
[~2024-06-05] MED LIST changes: +ATIVAN 1MG T1 MG/TAB PO; +BUMEX 1MG TA1 MG/TA1 PO; +DESYREL 50MG50 MG PO; +VELPHORO
[2024-06-05 09:50] VITALS: BP 107/73; PULSE 100; TEMP 96.2
[2024-06-05 11:00] VITALS: BP 107/77; PULSE 93
== END ==
LOC: COL.RAD 09:29
DX: R18.8 Other ascites (principal)
CPT/HCPCS: 19804

== ENCOUNTER 2024-06-14 11:24 | Outpatient (RCR) | payer OTHER | END 2024-06-16 | disposition home or self-care (01) | LOC: COL.CR | DX: I50.22 Chronic systolic (congestive) heart failure (principal) ==

== ENCOUNTER 2024-08-14 14:17 | Outpatient (RCR) | payer OTHER ==
[2024-08-15] MEDS ORDERED: COZAAR 25MG25 MG/TAB PO (10:23)
[2024-08-15] MEDS ORDERED: PLAVIX 75MG TAB75 MG PO (10:23)
[2024-08-15] MEDS ORDERED: KAPSPARGO SPRIN25 MG PO (10:24)
[2024-08-15] MEDS ORDERED: SYNTHROID0.05 MG/TA PO (10:25)
== END 2024-08-16 | disposition home or self-care (01) ==
LOC: COL.CR
DX: Z02.89 Encounter for other administrative examinations (principal)

== ENCOUNTER → 2024-08-15 | Outpatient (CLI) | payer OTHER ==
[~2024-08-15] VITALS: Ht 190.5 cm; Wt 113.0 kg
[~2024-08-15] MED LIST changes: +COZAAR 25MG25 MG/TAB PO; +KAPSPARGO SPRIN25 MG PO; +Lidocaine 2% w EPI (1:100,000) 20 ML Multi-Dose VIAL IJ SCH; +PLAVIX 75MG TAB75 MG PO; +SYNTHROID0.05 MG/TA PO
[2024-08-15 10:25] VITALS: BP 120/90; PULSE 68; TEMP 97.8
[2024-08-15 11:15] VITALS: BP 127/79; PULSE 62
[2024-08-15 11:30] VITALS: BP 122/67; PULSE 65
[2024-08-15 11:45] VITALS: BP 113/61; PULSE 61
--- NOTE | 2024-08-15 11:57 | NUR ---
PATIENT HAS COMPLETED HIS RECOVERY FROM THE TDC REMOVAL. PATIENT DENIES ALL PAIN. BANDAGE REMAINS CLEAN, DRY, AND INTACT. PATIENT GOT DRESSED BY HIMSELF. ESCORTED PATIENT WITH ALL PERSONAL ITEMS OFF THE UNIT. ALL NEEDS MET.
== END ==
LOC: COL.RAD 08-14 16:36
DX: Z49.01 Encounter for fitting and adjustment of extracorporeal dialysis catheter (principal); N18.6 End stage renal disease